=== PATIENT | male | born 1985 | race Caucasian/White ===

== ENCOUNTER 2016-11-10 18:20 | Emergency (ER) | payer OTHER ==
--- NOTE | ~2016-11-10 | ER ---
PATIENT'S NAME: GUIDO BABIN [facility] AGE: 31 Y [address] ROOM: [place] [address] LOCATION: [facility] ADMIT DATE: 11/10/2016 ER/Outpatient Report DISCHARGE DATE: 11/10/2016 FAMILY PHYSICIAN: PHYSICIAN, NO ATTENDING PHYSICIAN: Brayan Rodgers Time of Admission: 1820 hours. Time of Evaluation: 1844 hours. CHIEF COMPLAINT: Right hand injury. HISTORY OF PRESENT ILLNESS: Guido is a 31-year-old male, who presents with his fiancee to the emergency room with an injury to his right hand. 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 He was opening a door, trying to prop it open, and it came back and slammed his hand. He has pain along the right fifth finger into the fifth metacarpal along with a small laceration. This was witnessed by other workers, denies any other injury. He does tell to myself this is workman's comp. The patient is not up-to-date with his tetanus, the last one was approximately 9 to 10 years ago. The patient denies any dizziness, feeling lightheaded, nausea, or vomiting. He denies any recent illnesses. PAST MEDICAL HISTORY: 1. The patient denies any chronic illness. 2. Postoperative right hand surgery, tendon repair. ALLERGIES: 1. EGGS. 2. PENICILLIN. CURRENT MEDICATIONS: The patient denies taking any medications on a regular basis. SOCIAL HISTORY: The patient is a smoker, one pack per day for the last 12 years. Occasional alcohol. No illicit drug use. FAMILY HISTORY: Not obtained. REVIEW OF SYSTEMS: All systems reviewed by myself and negative with the exception of those noted in the HPI. PATIENT'S NAME: GUIDO BABIN [facility] AGE: 31 Y [address] ROOM: [place] [address] LOCATION: [facility] ADMIT DATE: 11/10/2016 ER/Outpatient Report DISCHARGE DATE: 11/10/2016 FAMILY PHYSICIAN: PHYSICIAN, NO ATTENDING PHYSICIAN: Brayan Rodgers PHYSICAL EXAMINATION: VITAL SIGNS: Current height 6 feet 1 inch, weight 85.8 kg, temp 98.4, pulse 115, respirations 16, blood pressure 163/94, he is 97% on room air. Current pain rating is 4/10. GENERAL: Guido is alert and oriented x4, cooperative, in no acute distress. SKIN: Overall is within normal limits outside of the open laceration to his right fifth phalanx. EYES: Sclerae are nonicteric. Pupils equal, round, and reactive to light, EOMs intact. MOUTH AND THROAT: Oropharynx is clear. Buccal mucosa is moist. Tongue is midline. NECK: Supple, no lymphadenopathy. No thyromegaly appreciated. CHEST AND LUNGS: Lung sounds are clear throughout. HEART: Regular rate and rhythm without murmur. ABDOMEN: Soft, nontender. Bowel sounds are active throughout. EXTREMITIES: Right hand, he has a 1.5 x 0.4 cm laceration noted to the right fifth phalanx, is on the medial side near the MCP joint. The patient has pretty good range of motion, a little limited due to the pain. There is no obvious deformity noted. He has a little bruising, but there are no other abrasions noted. The patient is able to make a fist, but this is a little difficult. Capillary refill is less than 3 seconds. Radial pulses 2+. The patient does have bony tenderness over the proximal phalanx of the fifth digit. This does extend proximally back into the fifth MCP. The patient has no pain into the wrist area. NEUROLOGIC: Cranial nerves grossly intact. Mood is normal. LABORATORY DATA AND X-RAYS: Please note, an x-ray of the right hand was obtained. This was reviewed by Dr. Rodgers, in which there is no fracture and/or dislocation noted. Official x- ray report is pending. ASSESSMENT: 1. Right hand contusion secondary to trauma. 2. Right fifth digit laceration. PLAN: We did review x-ray results with the patient, there is no fracture or dislocation noted. There is a laceration to the fifth phalanx, that needs to be closed, it is gaping. I trimmed back the nonviable skin, it was cleaned sterilely, wound explored with no foreign body noted. There is no tendon exposure. Lidocaine without epinephrine was utilized, adequate anesthesia was obtained. A 5-0 nylon, 4 interrupted sutures were applied, in which this did approximate well. The patient tolerated this well. The wound was dressed in a triple antibiotic, Telfa, and Coban. Wound care instructions are given, PATIENT'S NAME: GUIDO BABIN [facility] AGE: 31 Y [address] ROOM: [place] [address] LOCATION: [facility] ADMIT DATE: 11/10/2016 ER/Outpatient Report DISCHARGE DATE: 11/10/2016 FAMILY PHYSICIAN: PHYSICIAN, NO ATTENDING PHYSICIAN: Brayan Rodgers handout is provided. Tylenol or ibuprofen as needed, and also he is to keep this very clean and covered. He will follow up in 10 days for suture removal, sooner if there would be any signs and symptoms of infection, which we did review over extensively. At this time, if he is still having discomfort in his hand at all, he will made to have this re-x-rayed. The patient verbalizes understanding. JANNA PADILLA APRN FOR [facility]/dominique /[id number] d: 11/11/16 0207 t: 12/01/16 0649, OUTPATIENT REPORT
== END 2016-11-10 19:22 | disposition disaster alternative care site (69) ==
LOC: GACC 18:20
PROC: 0HQFXZZ Repair Right Hand Skin, External Approach (ICD-10-PCS; principal; 2016-11-10)
DX: S61.216A Laceration without foreign body of right little finger without damage to nail, initial encounter (principal); S60.221A Contusion of right hand, initial encounter; Z23 Encounter for immunization; F17.210 Nicotine dependence, cigarettes, uncomplicated; Z88.0 Allergy status to penicillin; Z91.012 Allergy to eggs; Z98.890 Other specified postprocedural states; W22.8XXA Striking against or struck by other objects, initial encounter